=== PATIENT | female | born 1985 | race Caucasian/White ===

== ENCOUNTER 2018-01-26 18:45 | Emergency (ER) | payer OTHER ==
[2018-01-26 18:58] VITALS: TEMP 98.4
[2018-01-26] MEDS ORDERED: IBUPROFEN 600 MG TAB PO ONE (19:58)
[2018-01-26 20:05] VITALS: BP 106/67; PULSE 81; RESP 18
[2018-01-26] MEDS ORDERED: ACETAMINOPHEN 500 MG TAB PO ONE (20:16)
--- NOTE | 2018-01-26 20:19 | EDPHY ---
H & P Time Seen by Provider: 01/26/18 19:17 HPI/ROS: This patient complains of back pain mild symptoms Friday worsened Friday and persistent sense lumbar location bilateral a bit worse with hyper extension. She states the pain is severe in intensity in achy in nature. She did have much improvement from ibuprofen. She also reports flu-like symptoms onset 5 days prior to arrival of nasal congestion, dry cough, chills and diffuse myalgias worsen her back. 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 Her job involves a lot of lifting and twisting. She did see her primary care physician at [facility] on Friday and had a negative rapid flu at that time. She was diagnosed with a viral upper respiratory infection. She came in today because of the increasing back pain. ROS: Constitutional: Fever and chills up to yesterday. No fevers today. Chills also resolved. She does report generalized fatigue. HEENT: Mild sore throat 3/10 intensity since the onset of the illness with no recent changes. She still tolerating good p.o. Intake despite this. She has no ear pain. No sinus pain. Minimal coryza and occasional sneeze. Pulmonary: Dry cough that is decreasing in frequency in nearly resolved at this point. No pleuritic pain. No shortness of breath. Cardiovascular: She had mild orthostatics symptoms when she had her fevers a few days ago but no orthostatics symptoms over the past 48 hr. Integumentary: She reports sensitivity to her skin during this illness. No skin rash. No diaphoresis. : She was diagnosed with bacterial vaginosis recently at her primary care physician's office just started her Flagyl vaginal gel couple days ago. She reports still having mild vaginal discharge. She denies any dysuria. No urinary frequency. She has irregular menses due to an IUD and does not think she is . GI: Decreased appetite but she still tolerating p.o. Intake. No nausea vomiting or diarrhea. Neuro: No numbness tingling or focal weakness. No bowel or bladder incontinence. 10 point ROS is otherwise negative. Past Medical/Surgical History: Recent diagnosis of vaginal yeast infection Diagnosed with viral upper URI with negative rapid influenza at her family practitioner's 3 days prior to arrival Social History: Occasional alcohol. No drug use. Works as a barge worker. Smoking Status: Current every day smoker Physical Exam: General Appearance: Alert, no distress. Eyes: Pupils equal and round no pallor or injection. ENT, Mouth: Mucous membranes moist. No sinus tenderness to percussion. Oropharynx is clear with no significant erythema, dysphonia swelling. Ears: Clear bilaterally Respiratory: There are no retractions, lungs are clear to auscultation. Cardiovascular: Regular rate and rhythm. No murmur gallop or rub Gastrointestinal: Abdomen is soft and nontender, no masses, bowel sounds normal. Back: Patient has paraspinous lumbar muscular tenderness more than midline tenderness. No CVA tenderness. Straight leg raise is negative. She has limited range of motion of back extension due to increased pain without maneuver. Neurological: GCS 15. She maintains normal light touch sensory exam bilateral lower extremities and 2+ symmetric patellar DTRs, weak but symmetric bilateral Achilles DTRs. She maintains 5/5 strength in great toe dorsiflexion and plantar flexion bilaterally. Skin: Warm and dry, no rashes. Musculoskeletal: Neck is supple nontender. Extremities are symmetrical, full range of motion. Psychiatric: Mood and affect are normal DIFFERENTIAL DIAGNOSIS: After history and physical exam differential diagnosis was considered for influenza with falsely negative rapid flu swab, other flu- like recent illness now resolving, low back strain, pyelonephritis, disc herniation without nerve impingement, doubt paraspinal abscess osteomyelitis Constitutional: Initial Vital Signs Temperature (C) 36.9 C 01/26/18 18:53 Heart Rate 86 01/26/18 18:53 Respiratory Rate 20 01/26/18 18:53 Blood Pressure 116/76 01/26/18 18:53 O2 Sat (%) 96 01/26/18 18:53 O2 Delivery Mode Room Air O2 (L/minute) 36.7 Allergies/Adverse Reactions: No Known Allergies Allergy (Unverified 01/26/18 18:52) Home Medications: Medication Instructions Recorded Flagyl 01/26/18 Fluconazole [Diflucan] 200 mg PO ONCE #2 tablet 01/26/18 Ibuprofen [Motrin (*)] 600 mg PO Q6 PRN #30 tab 01/26/18 Methocarbamol [Robaxin 750 mg (*)] 750 - 1,500 mg PO QID PRN #30 tab 01/26/18 MDM/Departure - MDM Diagnostics: Urinalysis is contaminated with mild yeast present. Medications Given: Discontinued Medications Acetaminophen (Tylenol) 1,000 mg PO EDNOW ONE Stop: 01/26/18 20:17 Last Admin: 01/26/18 20:20 Dose: 1,000 mg Ibuprofen (Motrin) 600 mg PO EDNOW ONE Stop: 01/26/18 19:59 Last Admin: 01/26/18 20:01 Dose: 600 mg ED Course/Re-evaluation: Discussion: I think this patient had influenza with falsely negative rapid flu swab or flu-like illness at the end of last week. Also thinks she strained her low back working as a barge worker after taking week off and the muscular pain was exacerbated by flu-like illness. I counseled regarding this. She does not have evidence of cauda equina, significant radiculopathy, lower respiratory infection or other complicating or red flag findings. I counseled patient regarding low back strain and demonstrated some stretches that may assist with her recovery. She is treated with ibuprofen Tylenol with partial improvement. Given yeast on UA also treat her with Diflucan for vaginal yeast. Counseled regarding this. - Depart Disposition: Home, Routine, Self-Care Clinical Impression: Viral respiratory illness, Vaginal yeast infection Low back strain Qualifiers: Encounter type: initial encounter Qualified Code(s): S39.012A - Strain of muscle, fascia and tendon of lower back, initial encounter Condition: Good Instructions: Low Back Strain (ED) Additional Instructions: DX: Low back strain 2. Viral respiratory illness Plan: Ibuprofen 400-600 mg per 6 hours regularly for the next week then as needed. Methocarbamol muscle relaxants as needed. Tylenol in addition as needed for pain. Starts daily stretches prior to taking muscle relaxants in the morning. 3-5 minutes each of: "Butterfly stretch," "Sphinx stretch", "pigeon stretch", and hamstring stretch. Avoid lifting more than 5-10 pounds until symptoms improve. Call your primary care physician for a followup appointment in 3-7 days. Go to the emergency department for worsening of your symptoms despite the treatment plan. Stand Alone Forms: Work Excuse Prescriptions: Fluconazole [Diflucan] 200 mg PO ONCE #2 tablet Ibuprofen [Motrin (*)] 600 mg PO Q6 PRN #30 tab PRN Reason: Pain Methocarbamol [Robaxin 750 mg (*)] 750 - 1,500 mg PO QID PRN #30 tab PRN Reason: Muscle Spasms Referrals: NONE *PRIMARY CARE P,. [Primary Care Provider] - As per Instructions Maritza Jack MD [[facility] [place] Primary Care Provider] - As per Instructions
[2018-01-26 20:23] VITALS: O2SAT 97
== END 2018-01-26 20:30 | disposition home or self-care (01) ==
LOC: CED 18:45
DX: S39.012A Strain of muscle, fascia and tendon of lower back, initial encounter (principal); J06.9 Acute upper respiratory infection, unspecified; B37.3 Candidiasis of vulva and vagina; F17.200 Nicotine dependence, unspecified, uncomplicated; X58.XXXA Exposure to other specified factors, initial encounter
CPT/HCPCS: 81003-PO; 81015-PO

== ENCOUNTER → 2018-09-16 | Outpatient (CLI) | payer OTHER | LOC: FIMAGING 15:06 | PROVIDERS: ATTEND Nurse Practitioner Family | DX: N83.201 Unspecified ovarian cyst, right side (principal); Z97.5 Presence of (intrauterine) contraceptive device ==